=== PATIENT | female | born 2000 | race African-American/Black ===

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

== ENCOUNTER 2023-01-20 19:21 | Emergency (ER) | payer MEDICAID ==
[~2023-01-20] VITALS: Ht 177.8 cm; Wt 91.0 kg
[~2023-01-20 19:21] MED LIST changes: -FLUO10TA3 PO; +FLUO10TA35 PO
[2023-01-20 19:24] VITALS: O2SAT 98
[2023-01-21 12:00] VITALS: BP 115/80; PULSE 75; RESP 16; TEMP 98.7
== END 2023-01-21 12:46 | disposition home or self-care (01) ==
LOC: ER 21:12
DX: O26.891 Other specified pregnancy related conditions, first trimester (principal); Z3A.13 13 weeks gestation of pregnancy
CPT/HCPCS: 76801; 99284